=== PATIENT | female | born 1980 | race Caucasian/White ===

== ENCOUNTER 2022-08-27 08:48 | Outpatient (CLI) | payer OTHER, SELFPAY ==
[2022-08-27 10:02] LABS: Strep Group A RT-PCR NOT DETECTED (Negative)
== END 2022-08-27 08:49 | disposition home or self-care (01) ==
PROVIDERS: PCP Internal Medicine; Visit Provider Internal Medicine
DX: J02.9 Acute pharyngitis, unspecified (principal)
CPT/HCPCS: 87651

== ENCOUNTER 2025-04-27 09:56 | Outpatient (CLI) | payer OTHER, SELFPAY ==
--- NOTE | ~2025-04-27 | US_ITS ---
ULTRASOUND ABDOMEN LIMITED (RIGHT UPPER QUADRANT) Clinical History: R79.89 - Other specified abnormal findings of blood chemi... Comparison: None Technique: Right upper quadrant sonography Findings: Liver: Enlarged. Echogenic. No intrahepatic biliary ductal dilatation. Normal hepatopedal flow main portal vein. Micronodular contour. Common Duct: Normal caliber. 4 mm. Gallbladder: No stones. No wall thickening. No pericholecystic fluid. Pancreas: Unremarkable. Right kidney: Unremarkable. Retrohepatic IVC: Unremarkable. IMPRESSION: 1. Hepatomegaly, with steatosis and/or hepatocellular disease. 2. Early cirrhosis not excluded. Reviewed, dictated and finalized at location [facility]
== END 2025-04-27 09:57 | disposition home or self-care (01) ==
PROVIDERS: PCP Internal Medicine; Visit Provider Internal Medicine
DX: R79.89 Other specified abnormal findings of blood chemistry (principal); R16.0 Hepatomegaly, not elsewhere classified; K76.0 Fatty (change of) liver, not elsewhere classified; C22.0 Liver cell carcinoma; K74.69 Other cirrhosis of liver
CPT/HCPCS: 76705

== ENCOUNTER 2025-05-07 06:19 | Day surgery (SDC) | payer OTHER, SELFPAY ==
[2025-02-15 10:57] VITALS: BMI 26.4
[2025-04-26 08:25] VITALS: BMI 26.3
[2025-05-07 06:46] VITALS: BMI 26.1
[2025-05-07 06:48] VITALS: BP 147/95; PULSE 86; RESP 16; TEMP 36.7; O2SAT 98
--- NOTE | 2025-05-07 07:26 | P.PNAN_ITS ---
Anes - Initial Pre Proc Eval Procedure: Operation Date: 05/07/25 08:00 Proposed Procedures p Screening Colonoscopy - Adán Mota MD Date/Time: 05/07/25 07:26 Surgeon: Adán Mota MD Pre Op Diagnosis: Screening Patient Data Age: 44 Gender: F Height: 1.65 m Weight: 71.1 kg Last Vital Signs Temp 98.0 F 05/07/25 06:48 Pulse 86 05/07/25 06:48 Resp 16 05/07/25 06:48 BP 147/95 H 05/07/25 06:48 Pulse Ox 98 05/07/25 06:48 O2 Del Method Room Air 05/07/25 06:48 Allergies Allergy/AdvReac Type Severity Reaction Status Date / Time No Known Allergies Allergy Verified 05/07/25 06:37 Home Medications ?Medication ?Instructions ?Recorded ?Confirmed ?Type cholecalciferol (vitamin D3) 50 50 mcg PO DAILY 05/07/25 History mcg (2,000 unit) capsule Fish oil 4,000 mg BYNHUTH 1XD #90 tab s 02/13/25 05/07/25 Rx lisinopril 20 mg tablet See Rx Instructions .Route 1 06/23/24 05/07/25 Rx .COMPLEX #90 tabs semaglutide (weight loss) 0.25 0.25 mg (0.5 mL) subcut WEEKLY #2 04/23/25 05/07/25 Rx mg/0.5 mL subcutaneous pen mL injector (Wegovy) Patient hx anesthesia problems: none Family hx anesthesia problems: none Results Review: All pre-operative results and documents have been reviewed as part of the pre- operative evaluation. [facility] Past Medical History Medical History (Updated 04/23/25 @ 07:55 by Michell Holland CMA) Hyperlipidemia Follow up Elevated LFTs Encounter for preventive health examination Encounter for routine adult health examination without abnormal findings Hypertriglyceridemia BMI 26.0-26.9,adult Encounter for screening for other viral diseases BMI 27.0-27.9,adult On buttermilk drier operator drug therapy Benign essential hypertension Family History Family History Grandparent Cerebrovascular accident Mother Family history of malignant neoplasm of breast in first degree relative, Onset Age: 38 Esophageal cancer Hypertension Father , @ 73 Esophageal rupture Hypertension Social History Social History Smoking status: Never smoker Second hand tobacco smoke exposure: No Alcohol intake: current Drinks per week: 4 Substance use: never Substance use type: does not use Lack of Transportation: No Lack of Food: Never True Current Housing: I Have Housing Concerned About Future Housing: No Difficulty Paying Gas/Electric Bills: No Difficulty Paying for Meds: No Currently Unemployed: No Education: Master's Degree or Higher Difficulty w/ Childcare or Family Care: No Living arrangements: with family Gender identity (if verbalized by the patient): Female Spiritual care concerns: No Anes - Eval Final PreProcedure Day of Procedure 05/07/25 07:26 Heart: regular rate and rhythm Lungs: clear to auscultation Airway: Mallampati scale class 1 Neurological: alert and oriented Last oral intake: >/= 8 hours ASA classification: II Anesthetic plan: proceed Anesthesia type and monitoring: general Results Review: All pre-operative results and documents have been reviewed as part of the pre- operative evaluation. Informed Consent: The patient's anesthetic plan and its attendant risks and benefits were discussed with the patient/family/POA. Questions were solicited and answers provided to the satisfaction of the patient/family/POA.
[2025-05-07] MEDS: LACTATED RINGERS 1,000 ML 150 ML IV CONT (07:34)
--- NOTE | 2025-05-07 08:03 | PM.IMHP ---
H&P: HPI History of Present Illness Date/Time: 05/07/25 08:03 Chief Complaint: Screening colonoscopy Narrative: This is the patient's first colonoscopy. There are no GI symptoms and there is no family history of colorectal cancer. Review of Systems Review of Systems: All systems reviewed & are unremarkable except as noted in HPI and below PMFSH Past Medical History Medical History (Updated 05/07/25 @ 08:04 by Adán Mota MD) Hyperlipidemia Follow up Elevated LFTs Encounter for preventive health examination Encounter for routine adult health examination without abnormal findings Hypertriglyceridemia BMI 26.0-26.9,adult Encounter for screening for other viral diseases BMI 27.0-27.9,adult On [facility] drug therapy Benign essential hypertension Family History Family History Grandparent Cerebrovascular accident Mother Family history of malignant neoplasm of breast in first degree relative, Onset Age: 38 Esophageal cancer Hypertension Father , @ 73 Esophageal rupture Hypertension Social History Social History Smoking status: Never smoker Second hand tobacco smoke exposure: No Alcohol intake: current Drinks per week: 4 Substance use: never Substance use type: does not use Lack of Transportation: No Lack of Food: Never True Current Housing: I Have Housing Concerned About Future Housing: No Difficulty Paying Gas/Electric Bills: No Difficulty Paying for Meds: No Currently Unemployed: No Education: Master's Degree or Higher Difficulty w/ Childcare or Family Care: No Living arrangements: with family Gender identity (if verbalized by the patient): Female Spiritual care concerns: No Meds Home Medications and Allergies Home Medications ?Medication ?Instructions ?Recorded ?Confirmed ?Type cholecalciferol (vitamin D3) 50 50 mcg PO DAILY 11/23/22 05/07/25 History mcg (2,000 unit) capsule Fish oil 4,000 mg BYMOUTH 1XD #90 tabs 02/13/25 05/07/25 Rx lisinopril 20 mg tablet See Rx Instructions .Route 04/23/25 05/07/25 Rx .COMPLEX #90 tabs semaglutide (weight loss) 0.25 0.25 mg (0.5 mL) subcut WEEKLY #2 04/23/25 05/07/25 Rx mg/0.5 mL subcutaneous pen mL injector ([place]K[place]) Allergies Allergy/AdvReac Type Severity Reaction Status Date / Time No Known Allergies Allergy Verified 05/07/25 06:37 Vital Signs Vital Signs - 24 hr 05/07/25 06:48 Temperature 98.0 F Pulse Rate 86 Respiratory Rate 16 Blood Pressure 147/95 H Pulse Oximetry 98 Oxygen Delivery Room Air Exam Const: General: cooperative and healthy appearing Resp: Effort & Inspection: normal respiratory effort and able to speak in complete sentences Auscultation: clear to auscultation bilaterally Cardio: Rate: regular rate Rhythm: regular rhythm GI: Inspection: normal to inspection GI Palp: No No hepatosplenomegaly present Auscultation: normal bowel sounds Rectal Exam: deferred Skin: General skin exam: normal color Psych: Appearance: grossly normal Mental Status: mental status grossly normal Assessment and Plan Assessment and plan (1) Encounter for screening colonoscopy: Code(s): Z12.11 - Encounter for screening for malignant neoplasm of colon Status: Acute Assessment and Plan: The patient is deemed a good candidate for the procedure. Consent signed. Will proceed.
[2025-05-07 08:27] VITALS: BP 137/95; PULSE 88; RESP 16; O2SAT 100
[2025-05-07 08:37] VITALS: BP 131/89; PULSE 78; RESP 16; O2SAT 100
--- NOTE | 2025-05-07 08:42 | WPDANESPN ---
Anes - Prog Note Post-Op Date/Time: 05/07/25 08:42 Vital Signs: Last Vital Signs Temp 98.0 F 05/07/25 06:48 Pulse 88 05/07/25 08:27 Resp 16 05/07/25 08:27 BP 137/95 H 05/07/25 08:27 Pulse Ox 100 05/07/25 08:27 O2 Del Method Room Air 05/07/25 08:27 Pain Score (VAS): no I/O: Intake & Output 05/06/25 05/07/25 05/07/25 23:59 07:59 15:59 Intake Total 200 Balance 200 Patient Feedback: Patient satisfied with anesthetic care.
[2025-05-07 08:47] VITALS: BP 128/81; PULSE 73; RESP 16; O2SAT 100
== END 2025-05-07 08:53 | disposition home or self-care (01) ==
PROVIDERS: PCP Internal Medicine; Referring Provider Internal Medicine; Visit Provider Internal Medicine Gastroenterology
PROC: 0DJD8ZZ Inspection of Lower Intestinal Tract, Via Natural or Artificial Opening Endoscopic (ICD-10-PCS; CPT 45378; principal; 2025-05-07 08:00)
DX: Z12.11 Encounter for screening for malignant neoplasm of colon (principal); K57.30 Diverticulosis of large intestine without perforation or abscess without bleeding
CPT/HCPCS: 45378